=== PATIENT | male | born 1975 | race Hispanic/Latino ===

== ENCOUNTER 2024-12-01 09:02 | Day surgery (SDC) | payer BC ==
[2024-11-30 11:26] VITALS: BMI 31.5
[~2024-12-01 09:02] MED LIST: Fluorouracil 100 MG, Enoxaparin 25 MG, EPINEPHrine 0.3 MG in Ophthalmic Irrigation Solu... IRR SCH
[2024-12-01] MEDS ORDERED: Cyclopentolate 1% Opth Drop 2 ML BOT ONE (09:47)
[2024-12-01] MEDS ORDERED: PHENYLephrine 2.5% Ophth Soln 15 ml Bottle ONE (09:47)
[2024-12-01] MEDS ORDERED: PROPOFOL 40 ML ONE (10:48)
[2024-12-01] MEDS ORDERED: Midazolam HCl 2 mg/2 ml Vial ONE (10:48)
[2024-12-01] MEDS ORDERED: fentaNYL PF 100 MCG/2 ML SYRINGE ONE (10:48)
[2024-12-01] MEDS ORDERED: Ondansetron PF 4 MG/2 ML Vial ONE (11:06)
[2024-12-01] MEDS ORDERED: Dexamethasone 4 mg/ml Vial ONE (11:06)
[2024-12-01] MEDS ORDERED: PHENYLEPHRINE-NS 100 MCG/ML 10 ML SYRINGE ONE (11:09)
[2024-12-01] MEDS ORDERED: Triamcinolone 40 MG/ML VIAL ONE (11:21)
[2024-12-01] MEDS ORDERED: Lidocaine 4% PF 5 ML AMP ONE (11:21)
[2024-12-01] MEDS ORDERED: CEFAZOLIN 1 GM VIAL ONE (11:21)
[2024-12-01] MEDS ORDERED: Bupivacaine 0.75% 10 ML VIAL ONE (11:21)
[2024-12-01] MEDS ORDERED: Lidocaine 1% PF 5 ML VIAL ONE (11:21)
== END 2024-12-01 15:14 | disposition home or self-care (01) ==
LOC: SDC 09:02
PROVIDERS: ATTEND Ophthalmology Retina Specialist
PROC: 08T53ZZ Resection of Left Vitreous, Percutaneous Approach (ICD-10-PCS; principal; 2024-12-01)
DX: H33.012 Retinal detachment with single break, left eye (principal); E11.9 Type 2 diabetes mellitus without complications
CPT/HCPCS: 67025; J0171; J0690; J1100; J1650; J2250; J2405; J2704; J3301; J3490; J9190